=== PATIENT | female | born 1970 | race Caucasian/White ===

== ENCOUNTER 2019-06-15 13:00 | Emergency (ER) | payer OTHER ==
[~2019-06-15] VITALS: Ht 175.3 cm; Wt 65.8 kg
[2019-06-15] MEDS ORDERED: AMLODIPINE BESY10 MG PO (13:21)
--- OUTSIDE RECORDS SUMMARY | 2019-06-15 13:22 | XMS ---
PreManage Notification: SARAH PASCUAL [employer] Operator Events No recent Security Events currently on file CRITERIA MET - [facility] CARE PROVIDERS SHERIF MIX [facility] Current PHONE: Unknown INGA SPARKS Primary Care Current JAVAN PHONE: Unknown Olga has no Care Guidelines for this patient. [place] VISIT COUNT ([address] [facility] [place] 1 OMAR Goss TOTAL 2 NOTE: Visits indicate total known visits. ED/UCC VISIT TRACKING (12 MO.) 06/15/2019 13:01 [facility] [place] TYPE: Emergency COMPLAINT: - FACE SWELLING, NON INJ 02/19/2019 18:38 [facility] [place] TYPE: Emergency DIAGNOSES: - HEAD INJURY INPATIENT VISIT TRACKING (12 MO.) No inpatient visits to display in this time frame [email or web address]
== END 2019-06-15 13:44 | disposition home or self-care (01) ==
LOC: ED 13:00
DX: H92.01 Otalgia, right ear (principal)
CPT/HCPCS: 99282